=== PATIENT | female | born 1980 | race Caucasian/White ===

== ENCOUNTER 2018-08-19 16:07 | Emergency (ER) | payer MEDICAID ==
[~2018-08-19] VITALS: Ht 157.5 cm; Wt 96.7 kg
[2018-08-19 16:15] VITALS: BP 141/86
--- NOTE | 2018-08-19 16:22 | NUR ---
PT AMB TO ER BED 3
--- NOTE | 2018-08-19 16:22 | NUR ---
BIB SELF. AAO X4. C/O HEAD PAIN TO THE R LOWER BACK OF HEAD WITH NAUSEA X 2 DAYS. PT STATES 8/10 PAIN. PT DENIES TRAUMA OR INJURY. PERRLA, BRISK 3 MM. FULL CLEAR SPEECH. EQUAL PERI STRENGTH TO UPPER AND LOWER EXTREMITIES. STEADY GAIT. HOB UP. BED SIDE RAILS UP X1. ON LOW BED POSITION, LOCKED. ER MADE AWARE OF PT STATUS.
[2018-08-19] MEDS ORDERED: KETOROLAC 30 MG/ML VIAL IM ONE (16:35)
--- NOTE | 2018-08-19 16:35 | NUR ---
DR DEL RIO AT BEDSIDE FOR PT EVALUATION
[2018-08-19 18:25] VITALS: BP 135/82
--- NOTE | 2018-08-19 18:25 | NUR ---
Patient discharged with v/s stable. Written and verbal after care instructions given and explained. Patient alert, oriented and verbalized understanding of instructions. Ambulatory with steady gait. All questions addressed prior to discharge. ID band removed. Patient advised to follow up with PMD. Rx of [place] 5 mg-325 mg, Ibuprofen given. Patient educated on indication of medication including possible reaction and side effects. Opportunity to ask questions provided and answered.
== END 2018-08-19 18:25 | disposition home or self-care (01) ==
LOC: MED 16:07
DX: R51 Headache (principal); R11.0 Nausea; R42 Dizziness and giddiness
CPT/HCPCS: 81002; 81025; 96372; 99283; J1885

== ENCOUNTER 2024-01-13 14:59 | Emergency (ER) | payer MEDICAID, OTHER ==
[~2024-01-13] VITALS: Ht 157.5 cm; Wt 98.0 kg
[2024-01-13 15:00] VITALS: BP 136/100; PULSE 80; RESP 18; TEMP 98.8; O2SAT 100
[2024-01-13] MEDS: KETOROLAC 60 MG/2 ML VIAL IM ONE (16:37)
[2024-01-13 16:47] LABS: APPEARANCE,URINE CLEAR (CLEAR); BILIRUBIN,URINE NEGATIVE (NEGATIVE); BLOOD, URINE NEGATIVE (NEGATIVE); COLOR,URINE YELLOW (YELLOW); LEUKOCYTE ESTERASE ,URINE NEGATIVE (NEGATIVE); NITRITE, URINE NEGATIVE (NEGATIVE); PROTEIN,URINE NEGATIVE (NEGATIVE); UGLUCOSE NEGATIVE (NEGATIVE); UROBILINOGEN,URINE 0.2 EU/dL (0.2 - 1)
[2024-01-13 16:55] VITALS: BP 143/81; PULSE 72; RESP 14; O2SAT 100
[2024-01-13] MEDS ORDERED: IBUP-2213 PO (16:55)
== END 2024-01-13 16:55 | disposition home or self-care (01) ==
LOC: MED 14:59
DX: R07.89 Other chest pain (principal); M54.6 Pain in thoracic spine; Z90.49 Acquired absence of other specified parts of digestive tract; Z98.890 Other specified postprocedural states
CPT/HCPCS: 71045; 81003; 93005; 96372; 99285; J1885